=== PATIENT | female | born 1960 | race Caucasian/White ===

== ENCOUNTER 2017-07-17 15:58 | Emergency (ER) | payer OTHER ==
[~2017-07-17] VITALS: Ht 175.3 cm; Wt 85.8 kg
[2017-07-17] MEDS ORDERED: ONDANSETRON 2MG/ML, 2ML IVPush ONE (17:00)
[2017-07-17] MEDS ORDERED: SODIUM CHLORIDE 0.9% 1,000ML IVBOLUS ONE (17:00)
[2017-07-17] MEDS ORDERED: SODIUM CHLORIDE FLUSH 10ML SYR IVF ONE (17:00)
[2017-07-17 17:44] LABS: BASOPHILS # (AUTO) 0.01 x10^3/uL (0-0.1); BASOPHILS % (AUTO) 0 % (0-1); EOSINOPHILS # (AUTO) 0.01 x10^3/uL (0-0.4); EOSINOPHILS % (AUTO) 0 % (1-7); LYMPHOCYTES # (AUTO) 0.48 x10^3/uL (1-3.4); LYMPHOCYTES % (AUTO) 4 % (22-44); MD NO; MEAN CORPUSCULAR HEMOGLOBIN 29.7 pg (27.0-34.8); MEAN CORPUSCULAR HGB CONC 33.2 g/dL (32.4-35.8); MEAN CORPUSCULAR VOLUME 89.5 fL (80-100); MEAN PLATELET VOLUME 7.8 fL (7.4-10.4); MONOCYTES # (AUTO) 0.33 x10^3/uL (0.2-0.8); MONOCYTES % (AUTO) 3 % (2-9); NEUTROPHILS # (AUTO) 10.32 x10^3/uL (1.8-6.8); NEUTROPHILS % (AUTO) 93 % (42-75); PLATELET COUNT 336 x10^3/uL (130-400); RED BLOOD COUNT 5.09 x10^6/uL (3.82-5.3); RED CELL DISTRIBUTION WIDTH 13.6 % (9.6-15.2)
[2017-07-17] MEDS ORDERED: ONDANSETRON 2MG/ML, 2ML ONE (17:47)
[2017-07-17 17:52] LABS: ALANINE AMINOTRANSFERASE 37 U/L (12-78); ALBUMIN 3.6 g/dL (3.4-5.0); ANION GAP 6 mmol/L (5-15); CALCIUM 8.9 mg/dL (8.5-10.1); CHLORIDE 108 mmol/L (98-107)
[2017-07-17 17:55] LABS: ALKALINE PHOSPHATASE 74 U/L (45-117); BILIRUBIN,TOTAL 0.4 mg/dL (0.2-1.0); CREATININE 0.66 mg/dL (0.55-1.02); TOTAL PROTEIN 7.7 g/dL (6.4-8.2)
[2017-07-17 18:11] VITALS: BP 137/82
[2017-07-17] MEDS ORDERED: DIME120C2 PO (18:13)
[2017-07-17 18:43] LABS: TROPONIN I < 0.015 ng/mL (0.000-0.045)
== END 2017-07-17 19:22 | disposition home or self-care (01) ==
LOC: ED 19:15
DX: A09 Infectious gastroenteritis and colitis, unspecified (principal)
CPT/HCPCS: 36415; 80053; 83690; 84484; 85025; 93005; 96361; 96374; 99285; J2405; J7030

== ENCOUNTER 2018-09-12 14:14 | Emergency (ER) | payer OTHER ==
[~2018-09-12 14:14] MED LIST: DIME120C2 PO
[2018-09-12 14:57] LABS: BASOPHILS # (AUTO) 0.06 x10^3/uL (0-0.1); BASOPHILS % (AUTO) 1 % (0-1); EOSINOPHILS # (AUTO) 0.01 x10^3/uL (0-0.4); EOSINOPHILS % (AUTO) 0 % (1-7); LYMPHOCYTES # (AUTO) 0.89 x10^3/uL (1-3.4); LYMPHOCYTES % (AUTO) 14 % (22-44); MD NO; MEAN CORPUSCULAR HEMOGLOBIN 29.3 pg (27.0-34.8); MEAN CORPUSCULAR HGB CONC 33.4 g/dL (32.4-35.8); MEAN CORPUSCULAR VOLUME 87.7 fL (80-100); MEAN PLATELET VOLUME 8.1 fL (7.4-10.4); MONOCYTES # (AUTO) 0.66 x10^3/uL (0.2-0.8); MONOCYTES % (AUTO) 10 % (2-9); NEUTROPHILS # (AUTO) 4.78 x10^3/uL (1.8-6.8); NEUTROPHILS % (AUTO) 75 % (42-75); PLATELET COUNT 363 x10^3/uL (130-400); RED BLOOD COUNT 5.32 x10^6/uL (3.82-5.3); RED CELL DISTRIBUTION WIDTH 13.4 % (9.6-15.2)
[2018-09-12 15:07] LABS: ALANINE AMINOTRANSFERASE 39 U/L (12-78); ANION GAP 5 mmol/L (5-15); CHLORIDE 109 mmol/L (98-107); CREATININE 0.64 mg/dL (0.55-1.02)
[2018-09-12 15:19] LABS: ALKALINE PHOSPHATASE 89 U/L (45-117); BILIRUBIN,TOTAL 0.3 mg/dL (0.2-1.0); TOTAL PROTEIN 8.1 g/dL (6.4-8.2)
--- NOTE | 2018-09-12 15:24 | NUR ---
Pt to [facility]. to rm 33 from lobby
[2018-09-12 15:41] LABS: CULTURE INDICATED? NO; MICROSCOPIC NOT IND
--- NOTE | 2018-09-12 15:58 | NUR ---
DR. POOLE AT BEDSIDE. PT COMPLAINS OF FEELING PALPITATIONS SINCE LAST NIGHT. 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 PT ALSO STATES THAT SINCE STARTING A NEW MED FOR HER MS, HER LEGS HAVE BEEN SWOLLEN, RIGHT > THAN LEFT. PT PLACED ON CONT. SPO2, BP, AND METEOROLOGICAL EQUIPMENT REPAIRER, VSS.
[2018-09-12 16:18] LABS: TROPONIN I < 0.015 ng/mL (0.000-0.045)
--- NOTE | 2018-09-12 17:30 | NUR ---
pt resting on gurney. rr even and unlabored. pt denies pain or needs att. waiting for ultrasound results
[2018-09-12 17:55] VITALS: BP 122/66
== END 2018-09-12 17:58 | disposition home or self-care (01) ==
LOC: ED 16:29
DX: R00.2 Palpitations (principal); I49.3 Ventricular premature depolarization
CPT/HCPCS: 36415; 71045; 80053; 81003; 83690; 84439; 84443; 84484; 85025; 85379; 93005; 99284

== ENCOUNTER → 2018-10-21 | Outpatient (CLI) | payer OTHER | END | disposition home or self-care (01) | LOC: CFH 08:36 | PROVIDERS: ATTEND Internal Medicine Cardiovascular Disease | DX: R00.2 Palpitations (principal); Z87.891 Personal history of nicotine dependence; Z82.49 Family history of ischemic heart disease and other diseases of the circulatory system | CPT/HCPCS: 93306 ==

== ENCOUNTER 2019-01-25 11:43 | Outpatient (CLI) | payer OTHER ==
[~2019-01-25] VITALS: Ht 175.3 cm; Wt 88.9 kg
[2019-01-25 09:45] VITALS: BP 117/81
[~2019-01-25 11:43] MED LIST changes: +ACETAMINOPHEN 325 MG TABLET PO ONE; +CHOL200024 PO; +CYCL-259 PO; +DIPHENHYDRAMINE 50 MG/ML, 1ML IVPush ONE; +FILTER 0.22 MICRON IV ONE; +GABA600T7 PO; +OCRELIZUMAB IVPB ONE; +SODIUM CHLORIDE 0.9% IVPB ONE; +methylPREDNISolone SOD SUCC 125 MG/2 ML IVPush ONE
== END 2019-01-25 23:59 | disposition home or self-care (01) ==
LOC: INFUSION 11:43
PROVIDERS: ATTEND Psychiatry & Neurology Neurology
DX: G35 Multiple sclerosis (principal)
CPT/HCPCS: 96365; 96366; 96375; J1200; J2350; J2930; J7040

== ENCOUNTER → 2019-07-22 | Outpatient (CLI) | payer OTHER ==
[~2019-07-22] VITALS: Ht 175.3 cm; Wt 85.7 kg
[2019-07-22 09:55] VITALS: BP 131/81
[2019-07-22 16:00] VITALS: BP 146/78
== END | disposition home or self-care (01) ==
LOC: INFUSION 09:30
PROVIDERS: ATTEND Psychiatry & Neurology Neurology
DX: G35 Multiple sclerosis (principal); Z87.891 Personal history of nicotine dependence
CPT/HCPCS: 96365; 96366; 96375; J1200; J2350; J2930; J7040; 96374

== ENCOUNTER → 2020-01-10 | Outpatient (CLI) | payer OTHER ==
[~2020-01-10] MED LIST changes: -ACETAMINOPHEN 325 MG TABLET PO ONE; -DIPHENHYDRAMINE 50 MG/ML, 1ML IVPush ONE; -FILTER 0.22 MICRON IV ONE; -OCRELIZUMAB IVPB ONE; -SODIUM CHLORIDE 0.9% IVPB ONE; -methylPREDNISolone SOD SUCC 125 MG/2 ML IVPush ONE
[2020-01-10 10:02] LABS: BASOPHILS # (AUTO) 0.05 x10^3/uL (0-0.1); BASOPHILS % (AUTO) 1 % (0-1); EOSINOPHILS # (AUTO) 0.05 x10^3/uL (0-0.4); EOSINOPHILS % (AUTO) 1 % (1-7); LYMPHOCYTES # (AUTO) 0.97 x10^3/uL (1-3.4); LYMPHOCYTES % (AUTO) 21 % (22-44); MD NO; MEAN CORPUSCULAR HEMOGLOBIN 30.5 pg (27.0-34.8); MEAN CORPUSCULAR HGB CONC 33.6 g/dL (32.4-35.8); MEAN CORPUSCULAR VOLUME 90.8 fL (80-100); MEAN PLATELET VOLUME 7.8 fL (7.4-10.4); MONOCYTES # (AUTO) 0.54 x10^3/uL (0.2-0.8); MONOCYTES % (AUTO) 12 % (2-9); NEUTROPHILS # (AUTO) 3.12 x10^3/uL (1.8-6.8); NEUTROPHILS % (AUTO) 66 % (42-75); PLATELET COUNT 307 x10^3/uL (130-400); RED BLOOD COUNT 4.77 x10^6/uL (3.82-5.3); RED CELL DISTRIBUTION WIDTH 13.1 % (9.6-15.2)
[2020-01-10 10:15] LABS: ALANINE AMINOTRANSFERASE 26 U/L (12-78); ALBUMIN 3.6 g/dL (3.4-5.0); ANION GAP 7 mmol/L (5-15); CALCIUM 9.2 mg/dL (8.5-10.1); CHLORIDE 108 mmol/L (98-107)
[2020-01-10 10:18] LABS: ALKALINE PHOSPHATASE 81 U/L (45-117); BILIRUBIN,TOTAL 0.4 mg/dL (0.2-1.0); CREATININE 0.65 mg/dL (0.55-1.02); TOTAL PROTEIN 7.5 g/dL (6.4-8.2)
== END | disposition home or self-care (01) ==
LOC: LAB 09:40
PROVIDERS: ATTEND Psychiatry & Neurology Neurology
DX: G35 Multiple sclerosis (principal)
CPT/HCPCS: 36415; 80053; 82784; 85025

== ENCOUNTER → 2020-01-19 | Outpatient (CLI) | payer OTHER ==
[~2020-01-19] VITALS: Ht 175.3 cm; Wt 89.9 kg
[~2020-01-19] MED LIST changes: +ACETAMINOPHEN 325 MG TABLET PO ONE; +DIPHENHYDRAMINE 50 MG/ML, 1ML IVPush ONE; +FILTER 0.22 MICRON IV ONE; +OCRELIZUMAB IVPB ONE; +SODIUM CHLORIDE 0.9% IVPB ONE; +methylPREDNISolone SOD SUCC 125 MG/2 ML IVPush ONE
[2020-01-19 15:46] VITALS: BP 124/69
== END | disposition home or self-care (01) ==
LOC: INFUSION 09:36
PROVIDERS: ATTEND Psychiatry & Neurology Neurology
DX: G35 Multiple sclerosis (principal)
CPT/HCPCS: 96365; 96366; 96375; J1200; J2350; J2930; J7040